=== PATIENT | female | born 1995 | race Caucasian/White ===

== ENCOUNTER 2017-10-25 08:37 | Emergency (ER) | payer OTHER ==
[2017-10-25 10:09] LABS: ABSOLUTE EOSINOPHILS # (AUTO) 0.1 10^3/uL (0.0-0.6); ABSOLUTE LYMPHOCYTES (AUTO) 2.3 10^3/uL (0.5-4.7); ABSOLUTE MONOCYTES (AUTO) 0.4 10^3/uL (0.1-1.4); ABSOLUTE NEUT (AUTO) 4.6 10^3/uL (1.7-8.2); BASOPHILS % (AUTO) 0.7 % (0-2); HEMATOCRIT 42.2 % (36.0-47.0); HEMOGLOBIN 14.6 g/dL (12.0-15.5); LYMPHOCYTES % (AUTO) 30.8 % (13-45); MEAN CORPUSCULAR HEMOGLOBIN 30.1 pg (27.0-33.4); MEAN CORPUSCULAR HGB CONC 34.5 g/dL (32.0-36.0); MEAN CORPUSCULAR VOLUME 87 fl (80-97); PLATELET COUNT 289 10^3/uL (150-450); RED BLOOD COUNT 4.84 10^6/uL (3.72-5.28); RED CELL DISTRIBUTION WIDTH 13.5 % (11.5-14.0); SEGMENTED NEUTROPHILS % (AUTO) 61.5 % (42-78); TOTAL CELLS COUNTED % (AUTO) 100 %; WHITE BLOOD COUNT 7.4 10^3/uL (4.0-10.5)
--- NOTE | 2017-10-25 10:58 | ER Document Report ---
ED GI/ - General Mode of Arrival: Ambulatory Information source: Patient TRAVEL OUTSIDE OF THE [place] IN LAST 30 DAYS: No <SHAMAR BYRD - Last Filed: 10/25/17 15:15> <VIK YEBOAH - Last Filed: 10/25/17 15:33> - General Chief Complaint: Vaginal Bleeding Stated Complaint: POSSIBLE MISCARRIAGE Time Seen by Provider: 10/25/17 09:51 Notes: 22-year-old female that is 5 weeks and A1 that presents to the emergency department today with complaints of a possible miscarriage. Patient states she noticed spotting last night and increased bleeding this morning, stating that she passed 1 or 2 small clots prior to arrival today. Patient has had associated left-sided abdominal pain. Patient states she was seen by a resource center recently who told her that her hCG was undetectable at that time. (SHAMAR BYRD) - Related Data Allergies/Adverse Reactions: oxycodone Allergy (Verified 10/25/17 08:38) Past Medical History - General Information source: Patient - Social History Smoking Status: Never Smoker Cigarette use (# per day): No Chew tobacco use (# tins/day): No Frequency of alcohol use: None Drug Abuse: None Lives with: Family Family History: Reviewed & Not Pertinent Patient has suicidal ideation: No Patient has homicidal ideation: No - Medical History Medical History: Negative Surgical Hx: Negative <SHAMAR BYRD - Last Filed: 10/25/17 15:15> Review of Systems - Review of Systems Constitutional: No symptoms reported EENT: No symptoms reported Cardiovascular: No symptoms reported Respiratory: No symptoms reported Gastrointestinal: See HPI, Abdominal pain Genitourinary: No symptoms reported Female Genitourinary: See HPI, , Vaginal bleeding Musculoskeletal: No symptoms reported Skin: No symptoms reported Hematologic/Lymphatic: No symptoms reported Neurological/Psychological: No symptoms reported -: Yes All other systems reviewed and negative <SHAMAR BYRD - Last Filed: 10/25/17 15:15> Physical Exam <SHAMAR BYRD - Last Filed: 10/25/17 15:15> <VIK YEBOAH - Last Filed: 10/25/17 15:33> - Vital signs Vitals: Temp Pulse Resp BP Pulse Ox 98.0 F 69 16 122/78 98 10/25/17 08:41 10/25/17 08:41 10/25/17 08:41 10/25/17 08:41 10/25/17 08:41 - Notes Notes: PHYSICAL EXAM GENERAL: Alert, interacts well. No acute distress. HEAD: Normocephalic, atraumatic. EYES: Pupils equal, round, and reactive to light. Extraocular movements intact. ENT: Oral mucosa moist, tongue midline. NECK: Full range of motion. Supple. Trachea midline. LUNGS: Clear to auscultation bilaterally, no wheezes, rales, or rhonchi. No respiratory distress. HEART: Regular rate and rhythm. No murmurs, gallops, or rubs. ABDOMEN: Soft, suprapubic, pelvic, and right lower quadrant tenderness with palpation. Non-distended. Bowel sounds present in all 4 quadrants. No guarding, rigidity, or rebound. EXTREMITIES: Moves all 4 extremities spontaneously. No edema, radial and dorsalis pedis pulses 2/4 bilaterally. No cyanosis. NEUROLOGICAL: Alert and oriented x3. Normal speech. PSYCH: Normal affect, normal mood. SKIN: Warm, dry, normal turgor. No rashes or lesions noted. (SHAMAR BYRD) Course - Laboratory Result Diagrams: 10/25/17 09:50 <SHAMAR BYRD - Last Filed: 10/25/17 15:15> - Laboratory Result Diagrams: 10/25/17 09:50 <VIK YEBOAH - Last Filed: 10/25/17 15:33> - Re-evaluation Re-evalutation: 10/25/17 11:38 CBC unremarkable, hCG is positive but only 13.09, small amount of blood in the urine, blood type is a positive so RhoGam is not indicated, transvaginal ultrasound does not show any intrauterine or mass in the adnexa. This is all consistent with miscarriage. Patient was counseled regarding miscarriage and discharged to home, asked to follow-up with [facility] Michael Swift for her second miscarriage. (VIK YEBOAH) - Vital Signs Vital signs: Temp Pulse Resp BP Pulse Ox 98.5 F 62 18 116/70 99 10/25/17 12:34 10/25/17 12:34 10/25/17 12:34 10/25/17 12:34 10/25/17 12:34 - Laboratory Laboratory results interpreted by me: 10/25/17 10/25/17 09:51 10:40 Beta HCG, Quant 13.09 H Urine Blood SMALL H Discharge <SHAMAR BYRD - Last Filed: 10/25/17 15:15> <VIK YEBOAH - Last Filed: 10/25/17 15:33> - Discharge Clinical Impression: Spontaneous miscarriage Condition: Stable Disposition: HOME, SELF-CARE Additional Instructions: Miscarriage You have had a miscarriage (medically called a "spontaneous "). The miscarriage occurred because the fetus did not develop normally. There is nothing you did to cause it, and nothing you could have done to prevent it. About one in four ends in miscarriage. You should rest in bed for two or three days. As there is some risk of infection of the uterus, you should not have intercourse for one week (or until okayed by your physician). You might not have a period for six to eight weeks. You should not become again for at least three months -- the uterus requires time to get back to normal. Call the doctor or return for re-examination if there is heavy or persistent vaginal bleeding, fever, foul discharge, continued cramping pains, or abdominal pain. Information for patients For active duty and dependents diagnosed with a threatened or miscarriage, you should follow up in the following manner: Standard patients who have a local civilian provider should follow up with that provider. Patients of the Family Practice Clinic should call your Team Nurse at 8:00 am the following morning for further instructions. If you are neither a Standard patient nor a patient of the Family Practice Clinic, you should follow up at the [facility] ([facility]) . Patients already enrolled in the [facility], Prime patients not assigned to the Family Practice Clinic, and Active Duty patients not assigned to Family Practice Clinic should report ot the [facility] at 8:00 am the next morning that the [facility] is open and then you will be seen in the OB Clinic at 11:00am. Scribe Attestation: 10/25/17 15:33 I personally performed the services described in the documentation, reviewed and edited the documentation which was dictated to the scribe in my presence, and it accurately records my words and actions. (VIK YEBOAH) Scribe Documentation - Scribe Written by Eusebio:: Eusebio Zeng, 10/25/2017 1519 acting as scribe for :: Ashwini <SHAMAR BYRD - Last Filed: 10/25/17 15:15>
[2017-10-25 11:11] LABS: APPEARANCE,URINE CLEAR; BILIRUBIN,URINE NEGATIVE (NEGATIVE); COLOR,URINE YELLOW; GLUCOSE, URINE NEGATIVE (NEGATIVE); KETONES,URINE NEGATIVE (NEGATIVE); LEUKOCYTE ESTERASE,URINE NEGATIVE (NEGATIVE); NITRITE,URINE NEGATIVE (NEGATIVE); PROTEIN,URINE NEGATIVE (NEGATIVE); URINE SPECIFIC GRAVITY 1.011; UROBILINOGEN,URINE NEGATIVE mg/dL (<2.0)
--- NOTE | 2017-10-25 11:19 | RADIOLOGY REPORT (SQ) ---
EXAM DESCRIPTION: U/S OB TRANSVAG W/DOPPLER COMPLETED DATE/TIME: 10/25/2017 11:05 am REASON FOR STUDY: 5 weeks , cramping, bleeding COMPARISON: None. TECHNIQUE: Transvaginal static and realtime grayscale images acquired of the pelvis. Additional danilo cted spectral and color Doppler images recorded. All images stored on PACs. bHCG: Not available LIMITATIONS: None. FINDINGS: UTERUS: No masses. No anomalies. GESTATIONAL SAC: Not visualized YOLK SAC: Not visualized POLE: Not visualized RIGHT ADNEXA: Normal ovary with normal vascular flow. No adnexal free fluid. No adnexal masses. LEFT ADNEXA: Normal ovary with normal vascular flow. No adnexal free fluid. No adnexal masses. FREE FLUID: None. OTHER: No other significant finding. IMPRESSION: No IUP is identified. CONSIDER F/U BHCG AND/OR ULTRASOUND FOR VERIFICATION of a living gestation AND TO EXCLUDE ECTOPIC PRE GNANCY. Trimester of : First - 0 to 13 weeks. TECHNICAL DOCUMENTATION: JOB ID: [id number] [employer]- All Rights Reserved Reading location - IP/workstation name: [email or web address]
[2017-10-25] MEDS ORDERED: KETOROLAC TROMETHAMINE INJ/PF 30 MG/1 ML SDV IV ONE (11:39)
[2017-10-25 12:43] VITALS: BP 116/70
== END 2017-10-25 12:44 | disposition home or self-care (01) ==
LOC: ER 08:37
DX: O03.9 Complete or unspecified spontaneous abortion without complication (principal); Z3A.01 Less than 8 weeks gestation of pregnancy
CPT/HCPCS: 99284; 96374; 86900; 86901; 36415; 84702; 85025; 81001; 76817; 93976; J1885

== ENCOUNTER 2019-01-02 09:55 | Day surgery (SDC) | payer OTHER ==
[2019-01-02] MEDS ORDERED: BUPIVACAINE HCL 0.25 % INJ/PF (2.5 MG/1 ML) 30 ML VIAL ONE (11:19)
[2019-01-02] MEDS ORDERED: MIDAZOLAM 2 MG/2 ML INJ ONE (11:19)
[2019-01-02] MEDS ORDERED: LIDOCAINE 1% INJ-PF (10 MG/ML) 30 ML SDV ONE ×2 (11:19→11:20)
[2019-01-02] MEDS ORDERED: FENTANYL CITRATE INJ/PF 100 MCG/2 ML AMPUL ONE ×2 (11:19→12:44)
[2019-01-02] MEDS ORDERED: HYDROMORPHONE HCL INJ/PF 2 MG/ML AMPULE ONE (11:19)
[2019-01-02] MEDS ORDERED: PROPOFOL INJ 200 MG/20 ML VIAL IV ONE (11:19)
[2019-01-02] MEDS ORDERED: CEFAZOLIN INJ 1 GM VIAL ONE (11:55)
[2019-01-02] MEDS ORDERED: DIPHENHYDRAMINE HCL 50 MG/ML VIAL IV PRN (12:01)
[2019-01-02] MEDS ORDERED: PROMETHAZINE HCL INJ 25 MG/1 ML VIAL IV PRN ×2 (12:01)
[2019-01-02] MEDS ORDERED: MEPERIDINE HCL/PF INJ 25 MG/1 ML DISP.SYRIN IV PRN (12:01)
[2019-01-02] MEDS ORDERED: FENTANYL CITRATE INJ/PF 100 MCG/2 ML AMPUL IV PRN ×3 (12:01)
[2019-01-02] MEDS ORDERED: HYDROMORPHONE HCL INJ/PF 2 MG/ML AMPULE IV PRN (12:02)
[2019-01-02] MEDS ORDERED: LIDOCAINE 1% INJ (10 MG/ML) 10 ML MDV INJ ONE (12:10)
[2019-01-02] MEDS ORDERED: HYDROCODONE/ACETAMINOPHEN 5-325 MG TABLET PO PRN (12:55)
[2019-01-02] MEDS ORDERED: IBUPROFEN 800 MG TABLET PO SCH (14:00)
[2019-01-02 14:56] VITALS: BP 108/70
[2019-01-02] MEDS ORDERED: DEXAMETHASONE SOD PHOSPHATE INJ 4 MG/1 ML VIAL ONE (20:17)
[2019-01-02] MEDS ORDERED: ROCURONIUM BROMIDE INJ 50 MG/5 ML VIAL IV ONE (20:17)
[2019-01-02] MEDS ORDERED: NEOSTIGMINE METHYLSULFATE 10 MG/10 ML VIAL ONE (20:17)
[2019-01-02] MEDS ORDERED: METOCLOPRAMIDE HCL INJ/PF 10 MG/2 ML SDV ONE (20:17)
[2019-01-02] MEDS ORDERED: GLYCOPYRROLATE 1 MG/5 ML VIAL ONE (20:17)
[2019-01-02] MEDS ORDERED: LIDOCAINE 2% INJ-PF (20 MG/ML) 2 ML AMPUL ONE (20:17)
[2019-01-02] MEDS ORDERED: KETOROLAC TROMETHAMINE 60 MG/2 ML SDV ONE (20:17)
--- NOTE | 2019-01-05 11:56 | Discharge Summary ---
Discharge Summary (SDC) - Discharge Final Diagnosis: Incarcerated umbilical hernia Date of Surgery: 01/02/19 Discharge Date: 01/02/19 Condition: Stable Forms: ASU Anesthesia D/C Instruction, Discharge POC-Surgical Service Treatment or Instructions: Discharge home. Diet as tolerated. Activity: No lifting greater than 10 pounds x 6 weeks. Follow-up with me in 7 to 10 days. Okay to shower in 48 hours. Referrals: GERMAN GAY MD [Primary Care Provider] - MEETA DAUGHERTY MD [ACTIVE STAFF] - 01/13/19 1:45 pm (Follow up with Dr Daugherty ) Discharge Diet: As Tolerated Respiratory Treatments at Home: Deep Breathing/Coughing, Incentive Spirometer Discharge Activity: Balance Activity w/Rest, No Lifting Over 10 Pounds, No Lifting/Push/Pulling Home Care Assistance: Provided by Family Adaptive Devices on Discharge: Wheelchair Report the Following to Your Physician Immediately: Shortness of Breath, Nausea, Vomiting, Increase in Pain, Fever over 101 Degrees, Unusual Bleeding, Redness, Swelling, Warmth, Drainage-Yellow, Drainage-Foul Smelling, IV Site Infection Signs
--- NOTE | 2019-01-05 12:00 | Operative Report ---
Nonrecallable Operative Report DATE OF SURGERY: 01/02/19 PREOPERATIVE DIAGNOSIS: Incarcerated umbilical hernia POSTOPERATIVE DIAGNOSIS: Same as above OPERATION: Open primary umbilical hernia repair with Ethibond suture SURGEON: MEETA JONES ANESTHESIA: GA TISSUE REMOVED OR ALTERED: Preperitoneal fat, hernia sac COMPLICATIONS: None apparent ESTIMATED BLOOD LOSS: Minimal PROCEDURE: Drains/implants: None. Procedure in detail: After informed consent was obtained, the patient was brought to the operating room and laid in the supine position. The area of the abdomen was prepped and draped in a normal sterile fashion. A curvilinear infraumbilical incision was created with a 15 blade scalpel. Dissection was ca rried through the subcutaneous tissues using blunt dissection. The cicatrix was encircled, retracted upwards, and divided at its base. This exposed the hernia defect. There was a moderate amount of incarcerated preperitoneal fat within the defect. The preperitoneal fat was debrided away sharply. Next, the defect was examined. It was less than 5 mm in total diameter. The defect was then closed using 0 Ethibond suture in [id number] fashion. Once the defect was closed, the cicatrix was secured to the abdominal fascia using 3-0 Vicryl suture. The skin was then closed using 4-0 Vicryl Rapide suture in subcuticular fashion. A dressing was placed, and the procedure was concluded. All sponge, instrument, and needle counts were correct x2. Condition: Stable.
== END 2019-01-02 14:25 | disposition home or self-care (01) ==
LOC: OROUT 09:55
PROVIDERS: ATTEND Surgery
DX: K42.0 Umbilical hernia with obstruction, without gangrene (principal)
CPT/HCPCS: 81025; 49587; J2250; J0690; J3490 ×4; J1100; J1885; J3010; J2765; J2710; J2704; 830; J1170